=== PATIENT | female | born 1995 | race Caucasian/White ===

== ENCOUNTER 2017-02-26 05:27 | Inpatient (IN) ==
[2017-02-26] MEDS ORDERED: CEFAZOLIN 1 G INJECTION IVP ONE (05:44)
[2017-02-26] MEDS ORDERED: FAMOTIDINE PB 20 MG/50 ML BAG IV ONE (05:44)
[2017-02-26] MEDS ORDERED: CEFAZOLIN PREMIX (MC ONLY) 2 GM/50 ML BAG IV ONE (05:44)
[2017-02-26] MEDS ORDERED: CITRIC ACID/SODIUM CITRATE 30ml PO ONE (05:44)
[2017-02-26 06:24] VITALS: BMI 46.6
[2017-02-26] MEDS: LR 1,000 ML IV SCH ×2 (06:33→06:56)
[2017-02-26] MEDS ORDERED: ONDANSETRON 4 MG/2 ML INJECTION ONE (07:01)
[2017-02-26] MEDS ORDERED: EPHEDRINE 50mg/ml INJECTION ONE (07:02)
[2017-02-26] MEDS ORDERED: FentaNYL 100 MCG/2 ML INJECTION ONE (07:05)
[2017-02-26] MEDS ORDERED: MORPHINE SULFATE PF 5mg/10ml INJ (Duramorph) ONE (07:05)
--- NOTE | 2017-02-26 08:02 | Anesthesia Preoperative Report ---
Anesthesia Epidural/Spinal Rec - Date and Time Date: 02/26/17 Preoperative Diagnosis: prior Procedure: Plan: Spinal - Vital Signs Vital Signs: Temperature 97.8 F 02/26/17 05:44 Pulse Rate 102 H 02/26/17 05:44 Respiratory Rate 18 02/26/17 05:44 Blood Pressure 141/79 H 02/26/17 05:44 Pulse Oximetry 98 02/26/17 05:44 /Para: P:2 - Medictaions & Allergies Inpatient Medications: Current Medications Lactated Ringer's (Lactated Ringers) 1,000 mls @ 999 mls/hr IV .Q1H1M LATRICIA Last Admin: 02/26/17 06:56 Dose: 999 mls/hr Allergies/Adverse Reactions: Allergies Allergy/AdvReac Type Severity Reaction Status Date / Time adhesive Allergy Severe blisters Verified 04/04/15 00:46 - Home Medications Home Medications: Home Medications Medication Instructions Recorded Confirmed Type Vitamins 1 tab PO DAILY 02/14/17 02/25/17 History - Medical History Respiratory: Reports: Asthma (childhood hx only) Cardiovascular: Reports: Hypertension (slightly high, possibly anxiety related) Gastrointestional: Reports: Gastroesophageal Reflux Disease (none currently), Morbid Obesity - Surgical History Anesthesia Reactions: None Hx Family Anesthesia Reaction: No History of Motion Sickness: No - Social History Second Hand Exposure: No Substance Use Type: does not use - Pertinent Findings Lab Data: CBC and BMP 02/26/17 06:06 - Physical Exam Respiratory Exam: lungs clear Cardiovascular Exam: regular rate and rhythm - Airway Assessment Mallampati Score: II TMD: 3 Fingerbreadths Neck Extension: good Overall Assessment: may be difficult mask vent, may be difficult intubation - ASA ASA Score: 2 - Discussion Discussion: Discussed risks/options/alternatives of anesthesia and questions answered. Patient consents. Nursing pain assessment noted. Anesthesia Discussion: family member (multiple) Attestation Statement: Prior to the delivery of any anesthetic medication, I examined the patient, developed the plan, obtained the patient's consent and discussed the risk and benefits of the procedure with the patient/guardian.
[2017-02-26] MEDS ORDERED: OXYTOCIN DRIP 30 UNIT/500 ML ML IV SCH ×2 (08:15→09:09)
[2017-02-26] MEDS ORDERED: DiphenhydrAMINE 25 MG CAPSULE PO PRN (09:09)
[2017-02-26] MEDS ORDERED: HYDROCORTISONE 2.5% CREAM 30gm RECTALLY PRN (09:09)
[2017-02-26] MEDS ORDERED: SIMETHICONE 80 MG CHEWABLE TABLET PO PRN (09:09)
[2017-02-26] MEDS ORDERED: ACETAMINOPHEN 500 MG TABLET PO PRN (09:09)
[2017-02-26] MEDS ORDERED: HYDROCODONE/APAP 5mg/325mg TABLET PO PRN (09:09)
[2017-02-26] MEDS ORDERED: CALCIUM CARBONATE Chewable 500mg TABLET PO PRN (09:09)
[2017-02-26] MEDS ORDERED: SALINE FLUSH 10ml SYRINGE IVF PRN (09:09)
[2017-02-26] MEDS: D5LR 1,000 ML IV SCH ×2 (09:11→23:32)
[2017-02-26] MEDS: DOCUSATE CALCIUM 240 MG CAPSULE PO SCH (10:55)
[2017-02-26] MEDS: PRENATAL VITAMIN TABLET PO SCH (10:55)
[2017-02-26] MEDS: SIMETHICONE 80 MG CHEWABLE TABLET PO SCH ×4 (10:55→21:09)
[2017-02-26] MEDS: IBUPROFEN 800 MG TABLET PO PRN ×2 (11:31→19:03)
[2017-02-26] MEDS: Oxycodone/Acetaminophen 5/325 1 TAB PO PRN ×3 (11:32→21:09)
--- NOTE | 2017-02-26 12:28 | Anesthesia Postoperative Note ---
- Date and Time Date: 02/26/17 Time: 12:27 - Status Patient Participated in Evaluation: Patient Participated in Person Vital Signs: Temperature 97.8 F 02/26/17 05:44 Pulse Rate 102 H 02/26/17 05:44 Respiratory Rate 18 02/26/17 05:44 Blood Pressure 141/79 H 02/26/17 05:44 Pulse Oximetry 98 02/26/17 05:44 Respiratory Function: Airway Patent Cardiovascular Function: Regular Pulse Mental Status: Alert and Oriented Pain Intensity: 2 Hydration: Taking PO Fluids Complications During Recover: None Apparent - Follow-Up Instructions Instructions: Per Surgeon
--- NOTE | 2017-02-26 13:18 | Operative Note ---
DATE OF SURGERY: 02/26/2017 PREOPERATIVE DIAGNOSIS 1. 21-year-old white female, G3, P2, at 39.0 weeks gestational age. 2. Previous x 2. 3. Desires permanent sterilization. POSTOPERATIVE DIAGNOSIS 1. Male infant, Apgars, 3842 g (Andres Casanova). PROCEDURE: Repeat low transverse section and modified Manas tubal ligation. EBL: 800 ml ANESTHESIA: Spinal by Keanu Gomez CRNA COMPLICATIONS: None. SURGEON: Kb Polanco MD REFINING ENGINEER: Jared Hernandez Assistant Store Leader DESCRIPTION OF PROCEDURE After adequate spinal anesthesia, the patient was prepped and draped in the left lateral decubitus position. A Pfannenstiel skin incision was made with a sharp knife and carried down the fascia, which was incised transversely with the Maddox scissors. The rectus fascia was bluntly and sharply dissected off the rectus muscle. The rectus muscle was divided, and the peritoneum was isolated, elevated, entered with the Metzenbaum scissors and extended cephalad and caudad. The bladder blade was then inserted. Then using a sharp knife, a transverse incision was made in the lower uterine segment well above the bladder -as it was quite low. This was extended with my fingers. Male was delivered from the vertex position without difficulty. Infant was bulb suctioned after delivery of head and then again after delivery of the body. Cord was doubly clamped and cut and the was taken to the isolette to be received by the charge nurse. The placenta was removed spontaneously and will be held. The placenta was expressed manually and was intact. The uterus was then allowed to fall upon the external abdominal wall. The endometrial cavity was cleansed using moist lap sponges. The uterus was closed using 0-Monocryl in a running locking fashion. Hemostasis was confirmed. The posterior cul-de-sac was cleansed of old blood clots and the tubes and ovaries were examined and found to be normal in size, shape and appearance. Our attention was then turned to tubal ligation. The right fallopian tube was isolated and then a mid-isthmic portion of the tube was grasped with the Coila clamp, elevated and then a knuckle of the tube was ligated using 2-0 chromic. A Katelynn clamp was passed through the meso of the tube and then the proximal and distal aspects of the knuckle of the tube were ligated using 2-0 silk. The knuckle of the tube was excised and sent to surgical pathology for lumen confirmation. This procedure was then repeated on the left side and hemostasis was confirmed. After hemostasis was again confirmed, the uterus was then carefully returned to the abdominal cavity. The abdomen was then closed in layers. The peritoneum was closed using 2-0 Vicryl in running nonlocking fashion. The fascia was closed using 0-Vicryl in a running nonlocking fashion bilaterally from the lateral aspects medially. Hemostasis was achieved with the subcutaneous tissue. Subcutaneous tissue space was closed with a 2-0 chromic in a running nonlocking fashion. Skin was closed with 4-0 undyed Vicryl in a subcuticular fashion. The patient tolerated the procedure well and went to the recovery room in stable condition. Pad, sponge and needle counts were correct and urine postop was clear and free flowing. MTDD
--- NOTE | 2017-02-26 18:17 | Progress Note ---
OB PP Progress Note Free Text - Date Date: 02/26/17 - Progress Note Progress Note: vss af doing fine no c/o q&a-krb
[2017-02-27] MEDS: Oxycodone/Acetaminophen 5/325 1 TAB PO PRN ×5 (02:43→21:43)
[2017-02-27] MEDS: IBUPROFEN 800 MG TABLET PO PRN ×3 (03:24→20:28)
--- NOTE | 2017-02-27 08:28 | Progress Note ---
OB PP Progress Note Free Text - Date Date: 02/27/17 - Progress Note Progress Note: pt sleeping will round again later.
[2017-02-27] MEDS: DOCUSATE CALCIUM 240 MG CAPSULE PO SCH (09:24)
[2017-02-27] MEDS: SIMETHICONE 80 MG CHEWABLE TABLET PO SCH ×4 (09:24→20:28)
[2017-02-27] MEDS: PRENATAL VITAMIN TABLET PO SCH (09:27)
--- NOTE | 2017-02-27 19:08 | OB/GYN Progress Note ---
OB-Progress Note Free Text - Date Date: 02/27/17 - Progress Note Progress Note: vss af doing ok anticipate dc tomorrow q&a-krb
[2017-02-27 23:14] VITALS: O2SAT 98
[2017-02-28] MEDS: Oxycodone/Acetaminophen 5/325 1 TAB PO PRN ×3 (03:44→13:10)
[2017-02-28] MEDS: IBUPROFEN 800 MG TABLET PO PRN (08:33)
[2017-02-28] MEDS: PRENATAL VITAMIN TABLET PO SCH (09:15)
[2017-02-28] MEDS: DOCUSATE CALCIUM 240 MG CAPSULE PO SCH (09:15)
[2017-02-28] MEDS: SIMETHICONE 80 MG CHEWABLE TABLET PO SCH ×2 (09:16→13:11)
--- NOTE | 2017-02-28 11:11 | Progress Note ---
OB PP Progress Note Free Text - Date Date: 02/28/17 - Progress Note Progress Note: doing well plan dc today f/u 1 wk wants to restart psych meds q&a
--- NOTE | 2017-02-28 11:16 | Discharge Instructions ---
Discharge Plan - Med Rec/Dispo Referrals/Follow Up: Kb Polanco MD [Physician] - 1 Week Prescriptions: New Ibuprofen [Motrin] 800 mg PO Q8H PRN #30 tab PRN Reason: Pain Oxycodone/APAP 5/325 [Percocet 5/325] 1 - 2 tab PO Q4H PRN #25 tab PRN Reason: Pain Continue Vitamins 1 tab PO DAILY
[2017-02-28 12:27] VITALS: BP 152/78; PULSE 82; RESP 16; TEMP 97.5
== END 2017-02-28 13:35 | disposition home or self-care (01) | DRG 766 ==
LOC: MC 05:27
PROVIDERS: ADMIT Obstetrics & Gynecology; ATTEND Obstetrics & Gynecology